=== PATIENT | male | born 1995 | race Caucasian/White ===

== ENCOUNTER 2019-04-06 14:37 | Emergency (ER) | payer OTHER ==
[~2019-04-06] VITALS: Ht 177.8 cm; Wt 68.0 kg
[~2019-04-06 14:37] MED LIST: Ranitidine HCl150 M1 PO
== END 2019-04-06 16:46 | disposition home or self-care (01) ==
LOC: ER 14:37
DX: S81.011A Laceration without foreign body, right knee, initial encounter (principal); V19.9XXA Pedal cyclist (driver) (passenger) injured in unspecified traffic accident, initial encounter; F17.200 Nicotine dependence, unspecified, uncomplicated
CPT/HCPCS: 12001; 73562-RT; 99283-25

== ENCOUNTER 2019-04-16 13:09 | Emergency (ER) | payer OTHER ==
[~2019-04-16] VITALS: Ht 170.2 cm; Wt 68.0 kg
== END 2019-04-16 13:32 | disposition home or self-care (01) ==
LOC: ER 13:09
DX: S81.011D Laceration without foreign body, right knee, subsequent encounter (principal); G43.909 Migraine, unspecified, not intractable, without status migrainosus; F17.200 Nicotine dependence, unspecified, uncomplicated; V19.9XXD Pedal cyclist (driver) (passenger) injured in unspecified traffic accident, subsequent encounter

== ENCOUNTER 2019-05-15 17:04 | Emergency (ER) | payer OTHER ==
[~2019-05-15] VITALS: Ht 172.7 cm; Wt 68.0 kg
== END 2019-05-15 19:15 | disposition home or self-care (01) ==
LOC: ER 17:04
DX: S61.452A Open bite of left hand, initial encounter (principal); G43.909 Migraine, unspecified, not intractable, without status migrainosus; F17.200 Nicotine dependence, unspecified, uncomplicated; Z91.038 Other insect allergy status; W54.0XXA Bitten by dog, initial encounter
CPT/HCPCS: 73130; 99283-25

== ENCOUNTER 2019-07-20 22:24 | Emergency (ER) | payer OTHER ==
[~2019-07-20] VITALS: Ht 172.7 cm; Wt 65.8 kg
== END 2019-07-20 23:39 | disposition home or self-care (01) ==
LOC: ER 22:24
DX: S81.011A Laceration without foreign body, right knee, initial encounter (principal); F17.200 Nicotine dependence, unspecified, uncomplicated; Z91.030 Bee allergy status; V18.0XXA Pedal cycle driver injured in noncollision transport accident in nontraffic accident, initial encounter
CPT/HCPCS: 12001; 99282-25